=== PATIENT | female | born 1965 | race Caucasian/White ===

== ENCOUNTER → 2018-08-26 | Outpatient (CLI) | payer OTHER ==
--- NOTE | 2018-08-26 17:51 | KCIC ---
EXAM: PA and Lateral Views of the Chest DATE: 08/26/2018 12:00 AM INDICATION: COMPARISON: No Prior FINDINGS: The heart is not enlarged. Mediastinal and hilar contours are normal. No focal parenchymal airspace opacity. No pleural effusion or pneumothorax. IMPRESSION: 1. No radiographic evidence for acute cardiopulmonary process. Electronically signed by: Reg Reynolds MD (08/26/2018 5:47 PM) [facility]
== END | disposition home or self-care (01) ==
LOC: KCIC 15:54
PROVIDERS: ATTEND Nurse Practitioner Family
DX: C55 Malignant neoplasm of uterus, part unspecified (principal)
CPT/HCPCS: 71046